=== PATIENT | female | born 1975 | race Caucasian/White ===

== ENCOUNTER 2016-12-23 05:48 | Emergency (ER) | payer MEDICARE, OTHER ==
[~2016-12-23] VITALS: Ht 157.5 cm; Wt 68.1 kg
[~2016-12-23 05:48] MED LIST: ALBU6.7H INH; ALBU8I INH; IBUP800T23 PO; LURA40 OR; MELO15TA2 PO
[2016-12-23 05:57] VITALS: BP 109/78; PULSE 116; RESP 20; TEMP 98.7; O2SAT 94
[2016-12-23] MEDS: RESP: ALBUTEROL 2.5 MG/IPRATROPIUM 0.5 MG NEB (SCH) INH (06:16)
[2016-12-23 06:25] VITALS: RESP 20; O2SAT 94
[2016-12-23 06:28] VITALS: PULSE 102; RESP 18; O2SAT 98
[2016-12-23] MEDS ORDERED: ALBU6.7H INH (06:39)
[2016-12-23] MEDS ORDERED: MEDR4PAK PO (06:39)
--- NOTE | 2016-12-23 06:45 | PD ---
HPI Chief Complaint: Respiratory Symptoms Time Seen by Provider: 06:09 Travel History International Travel<30 days: No Contact w/Intl Traveler<30days: No Traveled to known affect area: No History of Present Illness HPI 41 Year-old female with history of asthma presents to the emergency department for exacerbation of her asthma after opening up ovens at her place of work. Patient identifies that she is out of her rescue inhaler. Patient states that she is otherwise well controlled with her asthma. Patient has had no recent febrile illness or respiratory illness. Patient does not have exercise-induced asthma infection reports she ran 5 miles yesterday. Patient denies any environmental or seasonal allergens. Patient denies any chest pain or shortness of breath. Patient denies and is status post tubal ligation. PFSH Past Medical History Narrative Medical Asthma bipolar disorder CVA without residual; tubal ligation; no tobacco use; nursing notes reviewed Asthma: Yes Blood Disorders: No Bipolar Disorder: Yes Depression: Yes Cancer: No Cardiovascular Problems: No Cerebrovascular Accident: Yes (2006) Diminished Hearing: No Endocrine: No Gastrointestinal Disorders: No GERD: Yes Genitourinary: No Headaches: Yes Immune Disorder: No Musculoskeletal: No Neurologic: Yes Psychiatric: Yes (BI-POLAR) Reproductive: No Respiratory: Yes Immunizations Current: Yes Tetanus Vaccination: Unknown Influenza Vaccination: Yes ?: Not LMP: tubal ligation : 5 Para: 4 Miscarriage: 1 Tubal Ligation: Yes Past Surgical History Section: Yes Cholecystectomy: Yes Pacemaker: No Other Surgery: No Social History Alcohol Use: No Tobacco Use: No Substance Use: No Allergies-Medications (Allergen,Severity, Reaction): Coded Allergies: Erythromycin (Verified Allergy, Severe, RASH, 12/23/16) Lamictal (Verified Allergy, Severe, HIVES, 12/23/16) Seafood (Verified Allergy, Severe, 12/23/16) Reported Meds & Prescriptions Reported Meds & Active Scripts Active No Active Prescriptions or Reported Medications Review of Systems Except as stated in HPI: all other systems reviewed are Neg Physical Exam Narrative GENERAL: Well-developed well-nourished female in no acute distress mild respiratory distress no stridor or hoarseness SKIN: Warm and dry. HEAD: Normocephalic. EYES: No scleral icterus. No injection or drainage. ENT: Mucous members moist airway is patent. NECK: Supple, trachea midline. No JVD or lymphadenopathy. CARDIOVASCULAR: Regular rate and rhythm without murmurs, gallops, or rubs. RESPIRATORY: Breath sounds equal bilaterally mildly diminished breath sounds few expiratory wheezes. No accessory muscle use. GASTROINTESTINAL: Abdomen soft, non-tender, nondistended. MUSCULOSKELETAL: No cyanosis, or edema. BACK: Nontender without obvious deformity. No CVA tenderness. Data Data Last Documented VS Vital Signs Date Time Temp Pulse Resp B/P Pulse Ox O2 Delivery O2 Flow Rate FiO2 12/23/16 06:28 102 18 98 Room Air 12/23/16 05:57 98.7 109/78 Orders Iv Access Insert/Monitor (12/23/16 06:09) Ecg Monitoring (12/23/16 06:09) Oximetry (12/23/16 06:09) Oxygen Administration (12/23/16 06:09) Albuterol-Ipratropium Neb (Duoneb Neb) (12/23/16 06:15) MDM Medical Decision Making Medical Screen Exam Complete: Yes Emergency Medical Condition: Yes Medical Record Reviewed: Yes Differential Diagnosis Dyspnea, exacerbation asthma, bronchitis, pneumonia Narrative Course Patient administered DuoNeb updrafts 2 Patient does not want steroid in the emergency department Patient is clinically improved after updraft treatment; patient stable for outpatient management refill patient's rescue inhaler and prescription for Medrol Dosepak provided Diagnosis Primary Impression: Exacerbation of asthma Additional Impression: Medication refill Referrals: Primary Care Physician call for appointment Patient Instructions: General Instructions Departure Forms: Tests/Procedures, Work Release Special Instructions: no work x 1 day Additional Instructions: Increase fluid hydration Use inhaler as prescribed as needed Complete course of steroid as prescribed Follow-up with your primary care provider Take acetaminophen as needed for fever 100.4F or greater Return to the emergency department for fever shortness of breath pain or any concerns No work times one day Med/Other Pt SpecificInfo: Prescription(s) given Scripts Methylprednisolone Dosepak (Medrol Dosepak)4 Mg Dspk4 Mg PO DIRECTED #1 DSPK Ref 0 Per Pharmacist direction Prov:Tricia Vee MD 12/23/16 Albuterol 6.7 GM Inh (Proventil Hfa 6.7 GM Inh)90 Mcg/Act Aer2 Puff INH Q4-6H PRN (SHORTNESS OF BREATH) #1 INHALER Ref 0 Prov:Tricia Vee MD 12/23/16 Disposition: 01 DISCHARGE HOME Condition: Stable Tricia Vee MD December 23, 2016 06:45
== END 2016-12-23 06:53 | disposition home or self-care (01) ==
LOC: PHED 05:48
DX: J45.901 Unspecified asthma with (acute) exacerbation (principal); Z76.0 Encounter for issue of repeat prescription; F31.9 Bipolar disorder, unspecified; F32.9 Major depressive disorder, single episode, unspecified; W92.XXXA Exposure to excessive heat of man-made origin, initial encounter; Z86.73 Personal history of transient ischemic attack (TIA), and cerebral infarction without residual deficits; Y93.9 Activity, unspecified; Y92.090 Kitchen in other non-institutional residence as the place of occurrence of the external cause; Y99.0 Civilian activity done for income or pay
CPT/HCPCS: 94664; 99284

== ENCOUNTER 2017-05-31 09:35 | Emergency (ER) | payer MEDICARE, OTHER ==
[~2017-05-31] VITALS: Ht 157.5 cm; Wt 67.3 kg
[~2017-05-31 09:35] MED LIST changes: -ALBU8I INH; -IBUP800T23 PO; -LURA40 OR; +MEDR4PAK PO; -MELO15TA2 PO
[2017-05-31 09:40] VITALS: BP 116/53; PULSE 83; RESP 18; TEMP 98.6; O2SAT 98
--- NOTE | 2017-05-31 11:22 | PD ---
HPI Chief Complaint: Injury Time Seen by Provider: 11:11 Travel History International Travel<30 days: No Contact w/Intl Traveler<30days: No Traveled to known affect area: No History of Present Illness HPI 41-year-old female presents for evaluation of left knee pain. She reports that yesterday she was having a water balloon fight and she slipped on the wet floor in the kitchen. She twisted her left knee in the process. She reports that yesterday evening she had some swelling in her left knee and she has been icing and elevating her left knee. She has had pain today in her left knee and her work sent her here for medical clearance. She reports that it is an aching pain that is worse with movement and walking. Denies any numbness or tingling or weakness. She has no other complaints at this time. PFSH Past Medical History Asthma: Yes Blood Disorders: No Bipolar Disorder: Yes Depression: Yes Cancer: No Cardiovascular Problems: No Cerebrovascular Accident: Yes (2006) Diminished Hearing: No Endocrine: No Gastrointestinal Disorders: No GERD: Yes Genitourinary: No Headaches: Yes Immune Disorder: No Musculoskeletal: No Neurologic: Yes Psychiatric: Yes (BI-POLAR) Reproductive: No Respiratory: Yes Immunizations Current: Yes : 5 Para: 4 Miscarriage: 1 Tubal Ligation: Yes Past Surgical History Section: Yes Cholecystectomy: Yes Pacemaker: No Other Surgery: No Social History Alcohol Use: No Tobacco Use: No Substance Use: No Allergies-Medications (Allergen,Severity, Reaction): Coded Allergies: Fish Containing Products (Unverified Allergy, Severe, 03/13/17) erythromycin base (Unverified Allergy, Severe, RASH, 03/13/17) lamotrigine (Unverified Allergy, Severe, HIVES, 03/13/17) Reported Meds & Prescriptions Reported Meds & Active Scripts Active Medrol Dosepak (Methylprednisolone) 4 Mg Dspk 4 Mg PO DIRECTED Per Pharmacist direction Proventil Hfa 6.7 GM Inh (Albuterol Sulfate) 90 Mcg/Act Aer 2 Puff INH Q4-6H PRN Review of Systems Musculoskeletal: Positive: Pain, No: Limited ROM Skin: Positive Other (denies open wounds) Physical Exam Narrative GENERAL: Well-developed well-nourished female in no acute distress SKIN: Warm and dry. CARDIOVASCULAR: Regular rate and rhythm. No murmur appreciated. RESPIRATORY: No accessory muscle use. Clear to auscultation. Breath sounds equal bilaterally. MUSCULOSKELETAL: No obvious deformities. No joint effusion is currently present. There is mild tenderness to palpation to the medial lateral left knee joint. The patient maintains full fluid flexion and extension of the knee. There is no obvious laxity on valgus/varus/anterior/posterior stress. NEUROLOGICAL: Awake and alert. No obvious cranial nerve deficits. Motor grossly within normal limits. Normal speech. Data Data Last Documented VS Vital Signs Date Time Temp Pulse Resp B/P (MAP) Pulse Ox O2 Delivery O2 Flow Rate FiO2 05/31/17 09:40 98.6 83 18 116/53 (74) 98 Room Air Orders Orders Mikey Bandage (05/31/17 11:12) Ed Discharge Order (05/31/17 11:12) [facility] Medical Decision Making Medical Screen Exam Complete: Yes Emergency Medical Condition: Yes Medical Record Reviewed: Yes Differential Diagnosis Knee strain, ligamentous disruption, meniscal disruption, tibial plateau fracture, patellar tendon rupture Narrative Course Physical examination reveals no evidence of bony deformity. The patient appears to have sustained a sprain to her left knee. She will be given an Mikey wrap for support. She understands the importance of follow-up as an outpatient as if symptoms persist outpatient MRI imaging would be warranted. She is stable for discharge. Diagnosis Primary Impression: Left knee sprain Qualified Codes: S83.92XA - Sprain of unspecified site of left knee, initial encounter Departure Forms: Tests/Procedures, Work Release Enter return to work date: Jun 04, 2017 Additional Instructions: Ice the affected area several times a day 20 minutes at a time. Rest. Mikey wrap as needed. Elevation. Tylenol or Motrin for pain. Follow up in 2 weeks with primary care physician for recheck. Return for any emergent medical conditions. Med/Other Pt SpecificInfo: No Change to Meds Disposition: 01 DISCHARGE HOME Condition: Stable Armando Tan May 31, 2017 11:22
== END 2017-05-31 11:36 | disposition home or self-care (01) ==
LOC: PHEFT 09:35
DX: S83.92XA Sprain of unspecified site of left knee, initial encounter (principal); W01.0XXA Fall on same level from slipping, tripping and stumbling without subsequent striking against object, initial encounter; Y93.89 Activity, other specified; Y92.000 Kitchen of unspecified non-institutional (private) residence as the place of occurrence of the external cause
CPT/HCPCS: 99282

== ENCOUNTER 2018-06-25 06:25 | Inpatient (IN) ==
[2018-06-25] MEDS: Sod Chloride 0.9% Inj 1,000 ML IV.CONT SCH ×3 (07:20→19:40)
--- NOTE | 2018-06-25 07:22 | ED ---
HPI General Chief Complaint: Chest Pain Stated Complaint: Medical Time Seen by Provider: 06/25/18 07:05 Source: patient Mode of arrival: ambulatory Limitations: physical limitation and other History of Present Illness HPI Narrative: The patient is a 42-year-old female who presents to the emergency department for dysarthria and left-sided weakness. The patient's symptoms started on with chest pain that was left-sided, substernal, nonradiating, and intermittent. The patient was awake this morning when she suddenly developed symptoms at 6:30 AM including dysarthria, left arm weakness , left leg weakness, and left-sided numbness. The patient does have a history of previous CVA in 2006 but is not currently on any anticoagulants secondary to von Willebrand's disease. The patient's symptoms were acute onset at 6:30 AM. The patient is not currently taking any anticoagulants. Symptoms are severe and progressive. There are no current alleviating factors. Onset (ago): minute(s) Last Observed Normal: 06:30 Location: Reports speech, left arm and left leg History of same: No Severity: severe Quality: Reports weak and numb Relieving factors: none Exacerbating factors: none Context: Reports sudden onset On Anticoagulants: No Associated symptoms: Reports chest pain Treatments Prior to Arrival: Reports none Related Data Previous Rx's Medication Instructions Recorded albuterol sulfate [Ventolin HFA] 2 inh INHALATION Q4-6H PRN #8 g 05/21/18 Allergies Allergy/AdvReac Type Severity Reaction Status Date / Time erythromycin base Allergy Severe RASH Verified 06/25/18 07:09 lamotrigine Allergy Severe HIVES Verified 06/25/18 07:09 Review of Systems ROS: all other systems reviewed are negative [facility] Social History Social History Substance History: No History of Abuse Second Hand Smoke Exposure: No Smoking Status: Never smoker How Often Do You Have a Drink Containing Alcohol: Monthly or less Recent Travel in [facility] [place] within the Last 8 Weeks: No Recent Out of Country Travel within the Last 8 Weeks: No Immunization History Tetanus Immunization: Unsure Exam Narrative Exam Narrative: GENERAL: Awake, alert, tearful 42-year-old female who appears her stated age and appears slightly anxious. SKIN: Focused skin assessment warm/dry. HEAD: Atraumatic. Normocephalic. EYES: Pupils equal and round. 3 mm bilateral and reactive. EOMs are intact. Visual truong appear symmetric. Patient is able see fingers at a distance of 2 feet without difficulty. ENT: No nasal bleeding or discharge. Mucous membranes pink and moist. NECK: Trachea midline. No JVD. CARDIOVASCULAR: Regular rate and rhythm. No murmur appreciated. Heart rate in the 90s. RESPIRATORY: No accessory muscle use. Clear to auscultation. Breath sounds equal bilaterally. GASTROINTESTINAL: Abdomen soft, non-tender, nondistended. Hepatic and splenic margins not palpable. MUSCULOSKELETAL: No obvious deformities. No clubbing. No cyanosis. No edema. NEUROLOGICAL: Awake and alert. EOMs are intact. Smile is symmetric. Tongue is midline. Dysarthria noted. Drift to the left upper extremity but does not fall to the bed. Drift of the left leg to the bed within 5 seconds. Decreased sensation to soft touch in the left arm and left leg. Sensation is symmetric to the face. Heel to johns was normal. Finger to nose was diminished on the left, uncertain if this is secondary to the acute weakness. Oriented to person and place. Able to recognize a hand. PSYCHIATRIC: Appears anxious. Course Initial Documented Vital Signs Temperature 98.1 F 06/25/18 06:39 Pulse Rate 85 06/25/18 06:39 Respiratory Rate 18 06/25/18 06:39 Blood Pressure 121/55 L 06/25/18 06:39 Pulse Oximetry 99 06/25/18 06:39 Last Documented Vital Signs Temperature 98.1 F 06/25/18 06:39 Pulse Rate 72 06/25/18 07:30 Respiratory Rate 18 06/25/18 07:30 Blood Pressure 118/74 06/25/18 07:30 Pulse Oximetry 99 06/25/18 07:37 NIH Stroke Scale NIH Stroke Scale Level of Consciousness: 0-Alert Responds to Commands: 0-Both tasks correct Visual Truong: 0-No visual field defect Facial Movement: 0-Normal Motor Functions Arm LEFT: 1-Drift before 10 seconds Motor Functions Arm RIGHT: 0-No drift Motor Functions Leg LEFT: 2-Falls before 5 seconds Motor Functions Leg RIGHT: 0-No drift Limb Ataxia: 1-Ataxia in one limb Sensory Loss: 1-Mild sensory loss Best Language: 0-Normal Articulation: 2-Severe dysarthria Extinction or Inattention Sensory: 0-Absent Total: 7 Medical Decision Making MDM Narrative Medical decision making narrative: IV was established, labs are drawn and sent, the patient was placed on cardiac telemetry monitoring and continuous pulse oximetry monitoring. The patient's NIHSS was 7, a stroke alert was called as the patient's symptoms had an onset of 6:30 AM. I discussed the patient with the on-call neurologist, Dr. Paredes, 725. We had a discussion regarding TPA and von Willebrand's disease, he recommends consultation with hematology/ oncology. Therefore, a stat call was placed to hematology and oncology. The patient went immediately to CT for CT of the brain, CTA of the head neck, and CT perfusion. I discussed the patient with the radiologist, Dr. Chilango Arguello at 7: [address] of the brain is negative. There is no acute intracranial hemorrhage. I discussed the patient with hematology/oncology who recommends no TPA until further evaluation is performed. 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 The patient was reevaluated at 744 we had a discussion about TPA, her speech appears to have improved, is less dysarthric. The patient also had improved use of the left upper extremity and left leg, was able to scoot up in bed. Therefore, no TPA will be administered. I will hold anticoagulation until the patient is evaluated by hematology. The patient will be admitted for workup of acute CVA. I discussed the patient once again with hematology/oncology at 7:50 AM. He recommends that his colleague, Dr. Stanley, be consulted in regards to the patient's von Willebrand with CVA for further hematology evaluation. I discussed the patient with the residents, Dr. Brito, who agrees with admission to Dr. Costello. Medical Screen Exam Complete: Yes Emergency Medical Condition: Yes Differential Diagnosis Differential Diagnosis: Differential diagnosis includes CVA, TIA, intracranial hemorrhage, migraine variant, seizure, aortic dissection, carotid dissection, coagulopathy, MS. Lab Data Result diagrams: 06/25/18 07:18 POC Results POC Urine Results Negative Lab Results 06/25/18 06/25/18 06/25/18 Range/Units 07:16 07:18 07:18 WBC 4.9 (4.0-11.0) th/mm3 RBC 4.18 (4.00-5.30) mil/mm3 Hgb 13.0 (11.6-15.3) gm/dL POC Hgb (Calc) 12.9 (11.6-15.3) g/dL Hct 39.3 (35.0-46.0) % POC Hct 38.0 (35-46.0) % MCV 94.0 (80.0-100.0) fL MCH 31.2 (27.0-34.0) pg MCHC 33.2 (32.0-36.0) % RDW 15.1 (11.6-17.2) % Plt Count 178 (150-450) th/mm3 MPV 10.0 (7.0-11.0) fL Neut % (Auto) 62.4 (16.0-70.0) % Lymph % (Auto) 23.2 (9.0-44.0) % Mclennan % (Auto) 10.4 H (0.0-8.0) % Eos % (Auto) 2.9 (0.0-4.0) % Baso % (Auto) 1.1 (0.0-2.0) % Neut # (Auto) 3.1 (1.8-7.7) th/mm3 Lymph # (Auto) 1.1 (1.0-4.8) th/mm3 Mclennan # (Auto) 0.5 (0.0-0.9) th/mm3 Eos # (Auto) 0.1 (0.0-0.4) th/mm3 Baso # (Auto) 0.1 (0.0-0.2) th/mm3 WBC Differential . Differential Comment Auto diff final PT (9.8-11.6) sec INR Ratio APTT (23.4-31.7) sec Fibrinogen (227-377) mg/dL POC Sodium 140 (137-144) mmol/L POC Potassium 4.0 (3.6-5.0) mmol/L POC Chloride 101 L (102-111) mmol/L POC BUN 15 (5-21) mg/dL POC Creatinine 0.6 (0.6-1.3) mg/dL POC Glucose 83 82 (68-110) mg/dl Total Creatine Kinase (26-192) U/L Troponin I (0.02-0.05) ng/mL Beta HCG, Quant (0-5) mIU/mL Urine Color (Yellw/Straw) Urine Clarity (Clear) Urine pH (5.0-8.5) Ur Specific [place] (1.002-1.035) Urine Protein (Neg-Trace) mg/dL Urine Glucose (UA) (Negative) mg/dL Urine Ketones (Negative) mg/dL Urine Occult Blood (Negative) Urine Nitrate (Negative) Urine Bilirubin (Negative) Urine Urobilinogen (Less than 2) mg/dL Ur Leukocyte Esterase (Negative) Urine RBC (0-3) /hpf Ur Squamous Epith Cells (0-5) /hpf Micro UA Comment Ur Microscopic Review Urine Culture Comments 06/25/18 06/25/18 06/25/18 Range/Units 07:18 07:18 07:56 WBC (4.0-11.0) th/mm3 RBC (4.00-5.30) mil/mm3 Hgb (11.6-15.3) gm/dL POC Hgb (Calc) (11.6-15.3) g/dL Hct (35.0-46.0) % POC Hct (35-46.0) % MCV (80.0-100.0) fL MCH (27.0-34.0) pg MCHC (32.0-36.0) % RDW (11.6-17.2) % Plt Count (150-450) th/mm3 MPV (7.0-11.0) fL Neut % (Auto) (16.0-70.0) % Lymph % (Auto) (9.0-44.0) % Mclennan % (Auto) (0.0-8.0) % Eos % (Auto) (0.0-4.0) % Baso % (Auto) (0.0-2.0) % Neut # (Auto) (1.8-7.7) th/mm3 Lymph # (Auto) (1.0-4.8) th/mm3 Mclennan # (Auto) (0.0-0.9) th/mm3 Eos # (Auto) (0.0-0.4) th/mm3 Baso # (Auto) (0.0-0.2) th/mm3 WBC Differential Differential Comment PT 10.5 (9.8-11.6) sec INR 1.0 Ratio APTT 27.1 (23.4-31.7) sec Fibrinogen 251 (227-377) mg/dL POC Sodium (137-144) mmol/L POC Potassium (3.6-5.0) mmol/L POC Chloride (102-111) mmol/L POC BUN (5-21) mg/dL POC Creatinine (0.6-1.3) mg/dL POC Glucose (68-110) mg/dl Total Creatine Kinase 52 (26-192) U/L Troponin I Less than 0.02 L (0.02-0.05) ng/mL Beta HCG, Quant Less than 1 (0-5) mIU/mL Urine Color Straw (Yellw/Straw) Urine Clarity Clear (Clear) Urine pH 6.0 (5.0-8.5) Ur Specific [place] 1.025 (1.002-1.035) Urine Protein Negative (Neg-Trace) mg/dL Urine Glucose (UA) Negative (Negative) mg/dL Urine Ketones Negative (Negative) mg/dL Urine Occult Blood Negative (Negative) Urine Nitrate Negative (Negative) Urine Bilirubin Negative (Negative) Urine Urobilinogen Less than 2 (Less than 2) mg/dL Ur Leukocyte Esterase Negative (Negative) Urine RBC Less than 1 (0-3) /hpf Ur Squamous Epith Cells 7 (0-5) /hpf Micro UA Comment Culture not ind Ur Microscopic Review Not Reportable Urine Culture Comments Culture not ind Imaging Data Radiologist's impression: Chest X-Ray 06/25/18 07:15 CONCLUSION: Perihilar infiltrate on the left. This is new compared to prior 2010. Underlying pneumonia is not excluded. Head CT 06/25/18 07:15 CONCLUSION: 1. No acute intracranial abnormality. Report was called by [Dr. Chilango Arguello to Dr. Thomas at 7:29 AM.] Head CTA 06/25/18 07:15 CONCLUSION: 1. No large or central vessel occlusion identified. CT cerebral perfusion is pending. Report was called by [ Dr. Ankush Arguello to Dr. Paredes at 7:44 AM] Neck CTA 06/25/18 07:15 CONCLUSION: 1. No hemodynamically significant carotid artery stenosis identified. 2. Diminutive right vertebral. The left vertebral is dominant blood supply to the basilar. CT CAD 06/25/18 07:16 CONCLUSION: Physiological brain perfusion parameters with RAPID analysis as above. The decision for consideration of therapy is multi factorial and multi disciplinary relying on subjective and objective clinical data. This data is not construed or intended to be the sole determinant of treatment eligibility. ECG Data EKG Prior to Arrival: No Attestation: I personally reviewed and interpreted this ECG as follows: Interpretation: EKG reveals normal sinus rhythm with a rate of 65. Inverted T wave in lead III. No discernible rhythm in lead II. Discharge Plan Discharge Disposition Patient Disposition: 30 Still Patient Discharge Condition Condition: Stable Discharge Details Diagnosis: Acute cerebrovascular accident, Dysarthria Physicians Team ED Provider: Vin Thomas Primary Care Provider: UNKNOWN, Other Providers: Tonio Paredes Rxs /Orders / Referrals /Forms Prescriptions: No Action albuterol sulfate [Ventolin HFA] 90 mcg/actuation HFA aerosol inhaler 2 inh INHALATION Q4-6H PRN (Reason: shortness of breath or wheezing) Qty: 8 RF: 0 Discharge Instructions Patient Printed Instructions: Chest Pain (ED) Discharge Interventions Interventions: Vital Signs Last Done: 06/25/18 07:30 Status ED Status: Admitted Patient
--- NOTE | 2018-06-25 07:38 | CT ---
EXAM DATE: 06/25/2018 7:30 AM EST AGE/SEX: 42 years / Female INDICATIONS: Stroke alert, left side tingling. Slurred speech. CLINICAL DATA: This is the patient's initial encounter. Patient reports that signs and symptoms have been present for 1 day and indicates a pain score of Nonresponsive. MEDICAL/SURGICAL HISTORY: Non-responsive. Non-responsive. RADIATION DOSE: 30.48 CTDI (mGy) [place] [facility] [place]/10/[place]. . TECHNIQUE: CT of the head without contrast. Using automated exposure control and adjustment of the mA and/or kV according to patient size, radiation dose was kept as low as reasonably achievable to ob tain optimal diagnostic quality images. DICOM format image data is available electronically for revi ew and comparison. FINDINGS: Cerebrum: The ventricles are normal for age. No evidence of midline shift, mass lesion, hemorrhage or acute infarction. No extraaxial fluid collections are seen. Posterior Fossa: The cerebellum and brainstem are intact. The 4th ventricle is midline. The cerebe llopontine angle is unremarkable. Extracranial: The visualized portion of the orbits is intact. Skull: The calvaria is intact. No evidence of skull fracture. CONCLUSION: 1. No acute intracranial abnormality. Report was called by [Dr. Chilango Arguello to Dr. Thomas at 7:29 AM.] Electronically signed by: Lawson Arguello MD 06/25/2018 7:37 AM EST
[2018-06-25 07:48] LABS: Baso # (Auto) 0.1 th/mm3 (0.0-0.2); Baso % (Auto) 1.1 % (0.0-2.0); Eos # (Auto) 0.1 th/mm3 (0.0-0.4); Eos % (Auto) 2.9 % (0.0-4.0); Hematocrit 39.3 % (35.0-46.0); Lymph # (Auto) 1.1 th/mm3 (1.0-4.8); Lymph % (Auto) 23.2 % (9.0-44.0); Mean Corpuscular HGB Conc 33.2 % (32.0-36.0); Mean Corpuscular Hemoglobin 31.2 pg (27.0-34.0); Mono # (Auto) 0.5 th/mm3 (0.0-0.9); Mono % (Auto) 10.4 % (0.0-8.0); Neut # (Auto) 3.1 th/mm3 (1.8-7.7); Neut % (Auto) 62.4 % (16.0-70.0); Platelet Count 178 th/mm3 (150-450); Red Blood Count 4.18 mil/mm3 (4.00-5.30); Red Cell Distribution Width 15.1 % (11.6-17.2); White Blood Count 4.9 th/mm3 (4.0-11.0)
[2018-06-25 07:50] LABS: Activated Partial Thrombo Time 27.1 sec (23.4-31.7); Prothrombin Time 10.5 sec (9.8-11.6)
--- NOTE | 2018-06-25 07:51 | CT ---
EXAM DATE: 06/25/2018 7:45 AM EST AGE/SEX: 42 years / Female INDICATIONS: Stroke alert, left side tingling. Slurred speech. CLINICAL DATA: This is the patient's initial encounter. Patient reports that signs and symptoms have been present for 1 day and indicates a pain score of Nonresponsive. MEDICAL/SURGICAL HISTORY: Non-responsive. Non-responsive. RADIATION DOSE: 24.84 CTDI (mGy) ; Combined studies COMPARISON: [facility] – [place], CT HEAD W/O CONTRAST, 06/25/2018. . TECHNIQUE: Volumetric scanning was performed using a multi-row detector CT scanner during bolus infu niocle of 60 ml Visipaque 320 (iodixanol) nonionic water-soluble contrast as a cumulative dose for mul tiple exams. The data was post processed with a variety of visualization algorithms including full volume maximum intensity projection, multi-planar sliding thin slab reformation, curved planar reform ation, and surface rendering techniques. Using automated exposure control and adjustment of the mA a nd/or kV according to patient size, radiation dose was kept as low as reasonably achievable to obtain optimal diagnostic quality images. DICOM format image data is available electronically for review a nd comparison. FINDINGS: Both distal internal carotid arteries are widely patent. The anterior and middle cerebral circulation is within normal limits. No large or central vessel occlusion is seen. Posteriorly, the left vertebral is dominant blood supply to the basilar. It appears widely patent. Th e right vertebral is atretic and terminates in a plica. The posterior cerebral circulation appears wi breanna patent. CONCLUSION: 1. No large or central vessel occlusion identified. CT cerebral perfusion is pending. Report was called by [ Dr. Ankush Arguello to Dr. Paredes at 7:44 AM] Electronically signed by: Lawson Arguello MD 06/25/2018 7:50 AM EST
--- NOTE | 2018-06-25 07:57 | CT ---
EXAM DATE: 06/25/2018 7:52 AM EST AGE/SEX: 42 years / Female INDICATIONS: Stroke alert, left side tingling. Slurred speech. CLINICAL DATA: This is the patient's initial encounter. Patient reports that signs and symptoms have been present for 1 day and indicates a pain score of Nonresponsive. MEDICAL/SURGICAL HISTORY: Non-responsive. Non-responsive. RADIATION DOSE: 24.84 CTDI (mGy) ; Combined studies COMPARISON: No prior exams available for comparison. TECHNIQUE: Volumetric scanning was performed using a multirow detector CT scanner during bolus infus ion of 60 ml Omnipaque 350 (iohexol) nonionic water-soluble contrast as a cumulative dose for multip le exams. The data was postprocessed with a variety of visualization algorithms including full-volu me maximum intensity projection, multiplanar sliding thin-slab reformation, curved-planar reformation , and surface-rendering techniques. Using automated exposure control and adjustment of the mA and/or kV according to patient size, radiation dose was kept as low as reasonably achievable to obtain opti mal diagnostic quality images. DICOM format image data is available electronically for review and co mparison. Percent stenosis is calculated using the diameter of the stenotic region over the diameter of the nor mal distal internal carotid artery. FINDINGS: Aortic arch: There is bovine branching of the great vessels from the arch. The origins of the great v essels are widely patent. Right carotid: The right common carotid, internal carotid and external carotid are widely patent. Left carotid: The left common carotid, internal carotid and external carotid are widely patent. Vertebral circulation: The right vertebral is diminutive in caliber. It terminates in a PICA. The lef t vertebral is dominant blood supply to the basilar. It is widely patent throughout its course. CT source data: The portions of pulmonary parenchyma visualized are clear. CONCLUSION: 1. No hemodynamically significant carotid artery stenosis identified. 2. Diminutive right vertebral. The left vertebral is dominant blood supply to the basilar. Electronically signed by: Lawson Arguello MD 06/25/2018 7:55 AM EST
--- NOTE | 2018-06-25 08:00 | CT ---
EXAM DATE: 06/25/2018 7:54 AM EST AGE/SEX: 42 years / Female INDICATIONS: Stroke alert, left side tingling. Slurred speech. CLINICAL DATA: This is the patient's initial encounter. Patient reports that signs and symptoms have been present for 1 day and indicates a pain score of Nonresponsive. MEDICAL/SURGICAL HISTORY: Non-responsive. Non-responsive. RADIATION DOSE: 314.22 CTDI (mGy) COMPARISON: [facility] – [place], CT HEAD W/O CONTRAST, 06/25/2018. . TECHNIQUE: CT of the head after intravenous administration of 40 ml Visipaque 320 (iodixanol) nonio elizabeth water-soluble contrast as a single exam dose. Using automated exposure control and adjustment of the mA and/or kV according to patient size, radiation dose was kept as low as reasonably achievable to obtain optimal diagnostic quality images. DICOM format image data is available electronically for review and comparison. FINDINGS: 1. CBF (<30%) Volume (ml): 0 2. Perfusion (Tmax>6.0s) Volume (ml): 0 3. Mismatch Volume (ml) (Tmax>6.0 - CBF): 0 CONCLUSION: Physiological brain perfusion parameters with RAPID analysis as above. The decision for consideration of therapy is multi factorial and multi disciplinary relying on subjec tive and objective clinical data. This data is not construed or intended to be the sole determinant of treatment eligibility. Electronically signed by: Lawson Arguello MD 06/25/2018 7:59 AM EST
--- NOTE | 2018-06-25 08:02 | XR ---
EXAM DATE: 06/25/2018 7:53 AM EST AGE/SEX: 42 years / Female INDICATIONS: Stroke alert, left side numbness and weakness. CLINICAL DATA: This is the patient's initial encounter. Patient reports that signs and symptoms have been present for 1 day and indicates a pain score of 1/10. MEDICAL/SURGICAL HISTORY: Stroke. None. COMPARISON: [facility] [place] SING[place], 01/18/2011. . FINDINGS: Single AP chest demonstrates an patchy infiltrate throughout the left lung. This is new compared to p revious of 01/18/2011. The right lung is clear. The heart is enlarged. The bony structures are intact. CONCLUSION: Perihilar infiltrate on the left. This is new compared to prior 2010. Underlying pneumonia is not exc luded. Electronically signed by: Lawson Arguello MD 06/25/2018 8:01 AM EST
[2018-06-25 08:07] LABS: Creatine Kinase 52 U/L (26-192)
[2018-06-25 08:33] LABS: Bilirubin,Urine Negative (Negative); Clarity,Urine Clear (Clear); Color,Urine Straw (Yellw/Straw); Glucose,Urine (UA) Negative (Negative); Leukocyte Esterase,Urine Negative (Negative); Nitrite,Urine Negative (Negative); Specific Gravity,Urine 1.025 (1.002-1.035); Squamous Epithelial Cell,Urine 7 /hpf (0-5)
[2018-06-25 08:37] LABS: Amphetamine Screen,Urine Neg (Neg); Barbiturate Screen,Urine Neg (Neg); Cocaine Screen,Urine Neg (Neg)
[2018-06-25 08:38] LABS: Opiate Screen,Urine Neg (Neg)
[2018-06-25 08:40] LABS: Cannabinoid Screen,Urine Neg (Neg)
[2018-06-25] MEDS ORDERED: Acetaminophen 325 MG Tablet PO PRN (09:26)
--- NOTE | 2018-06-25 11:13 | P.HPFP ---
History of Present Illness Primary Care Physician: UNKNOWN <Chaparro Costello - 06/27/18 16:29> UNKNOWN <EvanBlancaeufemia Hurtado 06/25/18 11:13> Chief Complaint: weakness <SabasmamadouJez Genesis 06/25/18 17:41> History of Present Illness: He is a 42-year-old female with a past medical history of von Willebrand's disease (type II) and history of prior stroke in 2006 who presented to the ED with onset of dysarthria and left-sided weakness this morning at about 615. She is aided in her history giving by her fianc due to her difficulty with speaking. She has had some mild chest pain since . It is left-sided and substernal, and she describes it as a tightening, she did not have any weakness or numbness at that time. She does not have any chest pain at this time. This morning she woke at about 615 and noticed that she had difficulty speaking and weakness in the left side. She reports that she was able to ambulate at that time. She went to work where her project product manager noticed her symptoms and told her to go to the ED. she reports that her left side is slightly numb, however not completely and that she has tingling. She also reports that her speech is intermittently difficult. She denies lightheadedness, dizziness, headache, nausea, vomiting, chest pain at this time, palpitations, shortness of breath, cough, congestion, abdominal pain, change in bowel habits, dysuria. Past medical history: Type II von Willebrand disease Diet-controlled diabetes Asthma not on any daily medications, uses Ventolin as needed Bipolar disorder, not currently on any medications <EvanBlancaeufemia Hurtado 06/25/18 18:28> - Diagnosis (1) Acute cerebrovascular accident (2) Dysarthria <PeymanChaparro ornelas 06/27/18 16:29> (1) Acute cerebrovascular accident (2) Dysarthria <Jez Gordon 06/25/18 18:28> Inpatient Certification: I certify that the inpatient services were ordered in accordance with Medicare regulations governing the order. This includes certification that hospital inpatient services are reasonable and necessary and in the case of services not specified as inpatient-only under 42 CFR 419.22(n), that they are appropriately provided as inpatient services in accordance to with the 2-midnight benchmark under 43 CFR 412.3(e) <Chaparro Costello 06/27/18 16:29> I certify that the inpatient services were ordered in accordance with Medicare regulations governing the order. This includes certification that hospital inpatient services are reasonable and necessary and in the case of services not specified as inpatient-only under 42 CFR 419.22(n), that they are appropriately provided as inpatient services in accordance to with the 2-midnight benchmark under 43 CFR 412.3(e) <Jez Gordon 06/25/18 11:13> Estimated Total Length of Stay (Days): 2 <Jez Gordon 06/25/18 11: 13> Plans for Post Hospital Care: Home <Jez Gordon 06/25/18 11:13> Review of Systems All other systems reviewed negative except as stated in HPI <Jez Gordon 06/25/18 18:28> PMFSH - History History Provided By: Patient, Significant Other <Jez Gordon 18:28> - Medical / Surgical Hx Neg / Unobtainable Surgical History: No Previous Surgery <Jez Gordon 06/25/18 18:28> - Medical History Medical History: Medical History (Last Reviewed 06/25/18 @ 14:37 by Ada Concepcion) Stroke Asthma Diabetes Von Willebrand disease <Chaparro Costello 06/27/18 16:29> Medical History (Last Reviewed 06/25/18 @ 14:37 by Ada Concepcion) Stroke Asthma Diabetes Von Willebrand disease <Jez Gordon 06/25/18 17:41> - Tobacco History Second Hand Smoke Exposure: No <Jez Gordon 06/25/18 11:13> Smoking Status: Never smoker <Jez Gordon 06/25/18 11:13> - Alcohol History How Often Do You Have a Drink Containing Alcohol: Monthly or less <Jez Gordon 06/25/18 11:13> - Substance Use History Substance History: No History of Abuse <Jez Gordon - 06/25/18 11:13> - Travel History Recent Travel in the [place] Within the Last 8 Weeks: No <SabasceceBlanca mercereufemia Hurtado - 06/25/18 11:13> Recent Travel Out of the Country Within the Last 8 Weeks: No <Jez Gordon Genesis - 06/25/18 11:13> - Immunization History Tetanus Immunization: Unsure <SabasmamadouBlancaeufemia Hurtado - 06/25/18 11:13> Medications and Allergies Allergies Allergy/AdvReac Type Severity Reaction Status Date / Time erythromycin base Allergy Severe RASH Verified 06/25/18 07:09 lamotrigine Allergy Severe HIVES Verified 06/25/18 07:09 <Chaparro Costello - 06/27/18 16:29> Active Medications: Active Medications Acetaminophen (Tylenol) 650 mg PO Q4H PRN PRN Reason: Temp > 100.4 Last Admin: 06/25/18 12:55 Dose: 650 mg Aspirin (Aspirin) 325 mg PO DAILY [facility] Last Admin: 06/26/18 10:37 Dose: 325 mg Atorvastatin Calcium (Lipitor) 40 mg PO HS [facility] Last Admin: 06/25/18 21:55 Dose: 40 mg Dextrose (D50w Vial) 50 ml IV.PUSH UNSCH PRN PRN Reason: PER HYPOGLYCEMIA PROTOCOL Enalaprilat (Vasotec Inj) 1.25 mg IV.PUSH Q4H PRN PRN Reason: For SBP > 220 or DBP > 120 Enoxaparin Sodium (Lovenox Inj) 40 mg SQ Q24H [facility] Last Admin: 06/25/18 14:39 Dose: 40 mg Glucagon (Glucagon Inj) 1 mg OTHER UNSCH PRN PRN Reason: for Hypoglycemia Protocol Sodium Chloride (Ns Inj) 1,000 mls @ 100 mls/hr IV.CONT .Q10H [facility] Last Admin: 06/26/18 05:42 Dose: 70 mls/hr Sodium Chloride (Ns Inj) 1,000 mls @ 100 mls/hr IV.CONT .Q10H [facility] Last Admin: 06/26/18 10:38 Dose: 100 mls/hr Insulin Aspart (Novolog Insulin Correctional Sugar Inj) 0 unit SQ ACHS [facility]; Protocol Last Admin: 06/26/18 10:33 Dose: Not Given Ondansetron HCl (Zofran Inj) 4 mg IV.PUSH Q6H PRN PRN Reason: NAUSEA OR VOMITING Sodium Chloride (Ns Flush) 2 ml IV.FLUSH BID [facility] Last Admin: 06/26/18 10:37 Dose: 2 ml Sodium Chloride (Ns Flush) 2 ml IV.FLUSH PRN PRN PRN Reason: FLUSH AFTER USING IV ACCESS <Chaparro Costello - 06/27/18 16:29> Active Medications Acetaminophen (Tylenol) 650 mg PO Q4H PRN PRN Reason: Temp > 100.4 Sodium Chloride (Ns Inj) 1,000 mls @ 100 mls/hr IV.CONT .Q10H [facility] Last Admin: 06/25/18 07:20 Dose: 70 mls/hr Ondansetron HCl (Zofran Inj) 4 mg IV.PUSH Q6H PRN PRN Reason: NAUSEA OR VOMITING <Jez Gordon - 06/25/18 11:13> Exam Vital signs: Vital Signs 06/26/18 17:30 Pulse Oximetry 99 <Chaparro Costello - 06/27/18 16:29> Vital Signs 06/25/18 06:39 06/25/18 07:11 06/25/18 07:30 Temperature 98.1 F Pulse Rate 85 100 H 72 Respiratory Rate 18 27 H 18 Blood Pressure 121/55 L 132/92 H 118/74 Pulse Oximetry 99 100 99 06/25/18 07:37 Temperature Pulse Rate Respiratory Rate Blood Pressure Pulse Oximetry 99 Intake & Output 06/24/18 06/25/18 06/25/18 18:59 06:59 18:59 Weight 62.142 kg <Jez Gordon - 06/25/18 11:13> Narrative: General: Well-developed, alert, and in no acute distress. Appears stated age HEENT: Atraumatic, PERRL, non-icteric sclera and no conjunctival injection, moist mucous membranes Neck: Supple, non-tender without masses or lymphadenopathy, trachea midline Cardiac: Regular rate and rhythm without murmurs Pulmonary: Non-labored breathing. Lungs clear to auscultation bilaterally with good air movement Abdomen: Normal bowel sounds, soft and non-tender without rebound or guarding Extremities: No edema, 2+ pedal pulses, capillary refill less than 2 seconds Neurologic: Extraocular motions grossly intact. She reports double vision on horizontal tracking, however not vertical tracking. This is only present with both eyes open. There is blurred vision on the left and mild decrease in peripheral vision in all directions of the left eye. Cranial nerves I through XII otherwise intact. She has 2/5 strength in her upper and lower left extremities. She has intact, however diminished sensation diffusely on the left side of the body from neck down. Heel to johns with the right foot and rapid alternating movement with the right hand are intact, unable to assess on the left due to her weakness. <Jez Gordon - 06/25/18 18:28> Results - Labs Result diagrams: 06/26/18 07:10 06/26/18 07:10 <Chaparro Costello - 06/27/18 16:29> Abnormal lab results 06/25/18 06/25/18 06/25/18 Range/Units 07:18 07:18 07:18 Ralls % (Auto) 10.4 H (0.0-8.0) % POC Chloride 101 L (102-111) mmol/L Troponin I Less than 0.02 L (0.02-0.05) ng/mL Short CBC 06/25/18 Range/Units 07:18 WBC 4.9 (4.0-11.0) th/mm3 Hgb 13.0 (11.6-15.3) gm/dL Hct 39.3 (35.0-46.0) % Plt Count 178 (150-450) th/mm3 Cardiac Enzymes 06/25/18 Range/Units 07:18 Total Creatine Kinase 52 (26-192) U/L Troponin I Less than 0.02 L (0.02-0.05) ng/mL Urine 06/25/18 Range/Units 07:56 Urine Color Straw (Yellw/Straw) Urine Clarity Clear (Clear) Urine pH 6.0 (5.0-8.5) Ur Specific Gilmer 1.025 (1.002-1.035) Urine Protein Negative (Neg-Trace) mg/dL Urine Glucose (UA) Negative (Negative) mg/dL <Jez Gordon - 06/25/18 11:13> - Imaging Impressions Chest X-Ray 06/25/18 07:15 CONCLUSION: Perihilar infiltrate on the left. This is new compared to prior 2010. Underlying pneumonia is not excluded. Head CT 06/25/18 07:15 CONCLUSION: 1. No acute intracranial abnormality. Report was called by [Dr. Chilango Arguello to Dr. Thomas at 7:29 AM.] Head CTA 06/25/18 07:15 CONCLUSION: 1. No large or central vessel occlusion identified. CT cerebral perfusion is pending. Report was called by [ Dr. Ankush Arguello to Dr. Paredes at 7:44 AM] Neck CTA 06/25/18 07:15 CONCLUSION: 1. No hemodynamically significant carotid artery stenosis identified. 2. Diminutive right vertebral. The left vertebral is dominant blood supply to the basilar. CT CAD 06/25/18 07:16 CONCLUSION: Physiological brain perfusion parameters with RAPID analysis as above. The decision for consideration of therapy is multi factorial and multi disciplinary relying on subjective and objective clinical data. This data is not construed or intended to be the sole determinant of treatment eligibility. <Jez Gordon J - 06/25/18 11:13> Caprini VTE Risk Assessment Caprini VTE Risk Assessment: Moderate/High Risk (score >= 2) <Jez Gordon - 06/25/18 18:28> Caprini Risk Assessment Model: Point Value = 1 Point Value = 2 Point Value = 3 Point Value = 5 Age 41-60 Minor surgery BMI > 25 kg/m2 Swollen legs Varicose veins or History of unexplained or recurrent spontaneous Oral contraceptives or hormone replacement Sepsis (< 1 month) Serious lung disease, including pneumonia (< 1 month) Abnormal pulmonary function Acute myocardial infarction Congestive heart failure (< 1 month) History of inflammatory bowel disease Medical patient at bed rest Age 61-74 Arthroscopic surgery Major open surgery (> 45 min) Laparoscopic surgery (> 45 min) Malignancy Confined to bed (> 72 hours) Immobilizing plaster cast Central venous access Age >= 75 History of VTE Family history of VTE Factor V Leiden Prothrombin [id number] Lupus anticoagulant Anticardiolipin antibodies Elevated serum homocysteine Heparin-induced thrombocytopenia Other congenital or acquired thrombophilia Stroke (< 1 month) Elective arthroplasty Hip, pelvis, or leg fracture Acute spinal cord injury (< 1 month) <Chaparro Costello - 06/27/18 16:29> Point Value = 1 Point Value = 2 Point Value = 3 Point Value = 5 Age 41-60 Minor surgery BMI > 25 kg/m2 Swollen legs Varicose veins or History of unexplained or recurrent spontaneous Oral contraceptives or hormone replacement Sepsis (< 1 month) Serious lung disease, including pneumonia (< 1 month) Abnormal pulmonary function Acute myocardial infarction Congestive heart failure (< 1 month) History of inflammatory bowel disease Medical patient at bed rest Age 61-74 Arthroscopic surgery Major open surgery (> 45 min) Laparoscopic surgery (> 45 min) Malignancy Confined to bed (> 72 hours) Immobilizing plaster cast Central venous access Age >= 75 History of VTE Family history of VTE Factor V Leiden Prothrombin [id number] Lupus anticoagulant Anticardiolipin antibodies Elevated serum homocysteine Heparin-induced thrombocytopenia Other congenital or acquired thrombophilia Stroke (< 1 month) Elective arthroplasty Hip, pelvis, or leg fracture Acute spinal cord injury (< 1 month) <Jez Gordon - 06/25/18 11:13> Prophylaxis Regimen: Total Risk Factor Score Risk Level Prophylaxis Regimen 0-1 Low Early ambulation 2 Moderate Order ONE of the following: *Sequential Compression Device (SCD) *Heparin 5000 units SQ BID 3-4 Higher Order ONE of the following medications: *Heparin 5000 units SQ TID *Enoxaparin/Lovenox 40 mg SQ daily (WT < 150 kg, CrCl > 30 mL/min) *Enoxaparin/Lovenox 30 mg SQ daily (WT < 150 kg, CrCl > 10-29 mL/min) *Enoxaparin/Lovenox 30 mg SQ BID (WT < 150 kg, CrCl > 30 mL/min) AND/OR *Sequential Compression Device (SCD) 5 or more Highest Order ONE of the following medications: *Heparin 5000 units SQ TID (Preferred with Epidurals) *Enoxaparin/Lovenox 40 mg SQ daily (WT < 150 kg, CrCl > 30 mL/min) *Enoxaparin/Lovenox 30 mg SQ daily (WT < 150 kg, CrCl > 10-29 mL/min) *Enoxaparin/Lovenox 30 mg SQ BID (WT < 150 kg, CrCl > 30 mL/min) AND *Sequential Compression Device (SCD) <Chaparro Costello - 06/27/18 16:29> Total Risk Factor Score Risk Level Prophylaxis Regimen 0-1 Low Early ambulation 2 Moderate Order ONE of the following: *Sequential Compression Device (SCD) *Heparin 5000 units SQ BID 3-4 Higher Order ONE of the following medications: *Heparin 5000 units SQ TID *Enoxaparin/Lovenox 40 mg SQ daily (WT < 150 kg, CrCl > 30 mL/min) *Enoxaparin/Lovenox 30 mg SQ daily (WT < 150 kg, CrCl > 10-29 mL/min) *Enoxaparin/Lovenox 30 mg SQ BID (WT < 150 kg, CrCl > 30 mL/min) AND/OR *Sequential Compression Device (SCD) 5 or more Highest Order ONE of the following medications: *Heparin 5000 units SQ TID (Preferred with Epidurals) *Enoxaparin/Lovenox 40 mg SQ daily (WT < 150 kg, CrCl > 30 mL/min) *Enoxaparin/Lovenox 30 mg SQ daily (WT < 150 kg, CrCl > 10-29 mL/min) *Enoxaparin/Lovenox 30 mg SQ BID (WT < 150 kg, CrCl > 30 mL/min) AND *Sequential Compression Device (SCD) <Jez Gordon - 06/25/18 11:13> Assessment and Plan - Assessment (1) Acute cerebrovascular accident Code(s): I63.9 - Cerebral infarction, unspecified Status: Acute (2) Dysarthria Code(s): R47.1 - Dysarthria and anarthria Status: Acute <Chaparro Costello - 06/27/18 16:29> (1) Acute cerebrovascular accident Code(s): I63.9 - Cerebral infarction, unspecified Status: Acute (2) Dysarthria Code(s): R47.1 - Dysarthria and anarthria Status: Acute <Jez Gordon - 06/25/18 18:28> - Assessment and Plan She is a 42-year-old female who presents with significant stroke symptoms including dysarthria and left-sided weakness/numbness Acute CVA in the setting of von Willebrand disease: -Stroke alert was called and CT of the brain was performed which was negative for acute pathology -CTA of neck and head were negative for acute pathology -MR of the head was unremarkable -Dr. Thomas (ED physician) spoke with neurology and hematology and decision was made to not give TPA Head of the bed flat for 5 hours Every 2 neurochecks Speech therapy evaluation for dysarthria and swallow study ordered Continuous telemetry Consult to neurology, appreciate recommendations Consult to hematology due to von Willebrand's disease, appreciate recommendations Aspirin 325 daily and atorvastatin 40 mg daily Vasotec as needed for SBP greater than 220 or DBP greater than 120 Low-dose sliding scale insulin before meals at bedtime Type 2 diabetes: -States that she is controlled by diet -Blood glucose has been within normal limits thus far -We will continue to monitor Bipolar disorder: -States that she has been stable off of medication -We will continue to monitor her her psychiatric status Fluids: Normal saline at 100 cc/h Electrolytes: monitor and replete as needed Nutrition: N.p.o. until after swallow evaluation GI prophylaxis: not indicated VTE prophylaxis: Lovenox 40 sq daily Patient was seen and examined with Dr. Caban and condition was discussed with Dr. Costello <Jez Gordon - 06/25/18 18:35> - Attending Attestation THIS CASE WAS DISCUSSED WITH THE RESIDENT PHYSICIANS. I HAVE REVIEWED THE RECORD AND AGREE WITH THE ABOVE NOTE AND PLAN OF CARE WAS DISCUSSED. I HAVE AUTHORIZED THE ORDER FOR ADMISSION TO AN IN-PATIENT STATUS. Chaparro Costello MD <Chaparro Costello - 06/27/18 16:29>
[2018-06-25] MEDS ORDERED: Dextrose 50% in Water 50 ML Vial IV.PUSH PRN (12:50)
[2018-06-25] MEDS ORDERED: Enoxaparin Inj 40 MG/0.4 ML Syringe SQ SCH (13:00)
[2018-06-25] MEDS: Aspirin 325 MG Tablet PO SCH (14:38)
--- NOTE | 2018-06-25 16:10 | ECG ---
Date Performed: 06/25/2018 Time Performed: 07:56:02 PTAGE: 42 years EKG: Sinus rhythm BORDERLINE LEFT AXIS DEVIATION BORDERLINE ECG PREVIOUS TRACING 02/10/16 Since the previous tracing, no significant change noted DOCTOR: Sanford Castañeda Interpretating Date/Time 06/25/2018 16:07:21
--- NOTE | 2018-06-25 16:51 | MR ---
EXAM DATE: 06/25/2018 4:44 PM EST AGE/SEX: 42 years / Female INDICATIONS: CVA. Left sided weakness. CLINICAL DATA: This is the patient's initial encounter. Patient reports that signs and symptoms have been present for 1 day and indicates a pain score of 5/10. MEDICAL/SURGICAL HISTORY: None. section. Tubal ligation. Cholecystectomy. COMPARISON: [facility] – [place], [place] HEAD W/O CONTRAST, 06/25/2018. [facility] – [place], [place] CEREBRAL PERF W CONTRAST W 3D, 05/31. . TECHNIQUE: Multiplanar, multisequence examination of the brain was performed without contrast. FINDINGS: Cerebrum: The ventricles are normal for age. No evidence of midline shift, mass lesion, hemorrhage or acute infarction. No extraaxial fluid collections are seen. The pituitary gland and suprasellar cistern are normal in configuration. White Matter: No significant signal abnormalities are seen in the white matter. Posterior Fossa: The cerebellum and brainstem are intact. The 4th ventricle is midline. The cerebel lopontine angle is unremarkable. The cerebellar tonsils are normal in position. Diffusion Imaging: No focal areas of restricted diffusion are seen. No evidence of acute infarction . Extracranial: The visualized portions of the orbits and paranasal sinuses are unremarkable. CONCLUSION: 1. Unremarkable MRI of the brain Electronically signed by: Betro Lema MD 06/25/2018 4:49 PM EST
[2018-06-25] MEDS: Insulin NovoLOG Aspart Correctional Sugar Inj SQ SCH ×2 (17:06→21:57)
--- NOTE | 2018-06-25 19:16 | P.CONNEU ---
History of Present Illness Service: Neurology Primary Care Provider: UNKNOWN Chief Complaint: weakness History of Present Illness: 42-year-old female admitted for possible strokelike symptoms. Family is having some chest discomfort the past several days this morning and had dysarthric speech for weakness in her left side. She is a history of on Willebrand's disease in addition to bipolar disorder. CT brain carotids were negative for any acute lesion. On speaking to the ER physician he states he did notice some inconsistencies on her examination in regards to weakness in her speech pattern. At present she states she has been under a high level of stress. Works at 2 jobs. Denies any domestic issues denies any head or neck trauma. Review of Systems All other systems reviewed negative except as stated in HPI [facility] - History History Provided By: Patient, Significant Other - Medical History Medical History: Medical History (Last Reviewed 06/25/18 @ 14:37 by Ada Concepcion) Stroke Asthma Diabetes Von Willebrand disease - Tobacco History Second Hand Smoke Exposure: No Smoking Status: Never smoker - Alcohol History How Often Do You Have a Drink Containing Alcohol: Monthly or less - Substance Use History Substance History: No History of Abuse - Travel History Recent Travel in the [place] Within the Last 8 Weeks: No Recent Travel Out of the Country Within the Last 8 Weeks: No - Immunization History Tetanus Immunization: Unsure Hx Influenza Vaccine This Season: No Medications and Allergies Active Medications: Active Medications Acetaminophen (Tylenol) 650 mg PO Q4H PRN PRN Reason: Temp > 100.4 Last Admin: 06/25/18 12:55 Dose: 650 mg Aspirin (Aspirin) 325 mg PO DAILY [facility] Last Admin: 06/25/18 14:38 Dose: 325 mg Atorvastatin Calcium (Lipitor) 40 mg PO HS [facility] Dextrose (D50w Vial) 50 ml IV.PUSH UNSCH PRN PRN Reason: PER HYPOGLYCEMIA PROTOCOL Enalaprilat (Vasotec Inj) 1.25 mg IV.PUSH Q4H PRN PRN Reason: For SBP > 220 or DBP > 120 Enoxaparin Sodium (Lovenox Inj) 40 mg SQ Q24H [facility] Last Admin: 06/25/18 14:39 Dose: 40 mg Glucagon (Glucagon Inj) 1 mg OTHER UNSCH PRN PRN Reason: for Hypoglycemia Protocol Sodium Chloride (Ns Inj) 1,000 mls @ 100 mls/hr IV.CONT .Q10H [facility] Last Admin: 06/25/18 07:20 Dose: 70 mls/hr Sodium Chloride (Ns Inj) 1,000 mls @ 100 mls/hr IV.CONT .Q10H [facility] Last Admin: 06/25/18 14:38 Dose: 100 mls/hr Insulin Aspart (Novolog Insulin Correctional Sugar Inj) 0 unit SQ ACHS [facility]; Protocol Last Admin: 06/25/18 17:06 Dose: Not Given Ondansetron HCl (Zofran Inj) 4 mg IV.PUSH Q6H PRN PRN Reason: NAUSEA OR VOMITING Sodium Chloride (Ns Flush) 2 ml IV.FLUSH BID RAMILA Sodium Chloride (Ns Flush) 2 ml IV.FLUSH PRN PRN PRN Reason: FLUSH AFTER USING IV ACCESS Allergies Allergy/AdvReac Type Severity Reaction Status Date / Time erythromycin base Allergy Severe RASH Verified 06/25/18 07:09 lamotrigine Allergy Severe HIVES Verified 06/25/18 07:09 Exam Vital signs: Vital Signs 06/25/18 06:39 06/25/18 07:11 06/25/18 07:30 Temperature 98.1 F Pulse Rate 85 100 H 72 Respiratory Rate 18 27 H 18 Blood Pressure 121/55 L 132/92 H 118/74 Pulse Oximetry 99 100 99 06/25/18 07:37 06/25/18 09:54 06/25/18 12:00 Temperature 96.6 F L Pulse Rate 60 65 Respiratory Rate 19 20 Blood Pressure 106/61 117/59 L Pulse Oximetry 99 99 99 06/25/18 17:31 06/25/18 17:41 Temperature 98.9 F Pulse Rate 74 Respiratory Rate 20 Blood Pressure 94/60 L Pulse Oximetry 99 99 Intake & Output 06/25/18 06/25/18 06/26/18 06:59 18:59 06:59 Weight 62.142 kg 62.157 kg Other: # Voids 2 Date of Last Bowel Movement 06/25/18 Weight On Admission 62.157 kg Narrative: GENERAL: in NAD,, no acute distress SKIN: Warm and dry. HEAD: Atraumatic. Normocephalic. EYES: Pupils equal and round. No scleral icterus. ENT: No nasal bleeding or discharge. Mucous membranes pink and moist. NECK: Trachea midline. No JVD. CARDIOVASCULAR: Regular rate and rhythm. RESPIRATORY: No accessory muscle use. GASTROINTESTINAL: Abdomen soft, non-tender, nondistended. MUSCULOSKELETAL: Extremities without clubbing, cyanosis, or edema. NEUROLOGICAL: Awake and alert. Oriented x3, peculiar speech pattern at times she will start her at x11 disfluency other times she is quite articulate and can converse and make full sentences without difficulty. No difficulty with comprehension visual mack full pupils 4 3 mm bilaterally no gaze deviation exact movements full no facial asymmetry tongue midline, left-sided weakness proportional to patient effort time she is able to raise left arm other times she has not left leg withdraws to tactile but otherwise she states she cannot move it PSYCHIATRIC: Monotone speech reasonable eye contact - Constitutional no acute distress - Routine HEENT Exam Head: Present: normocephalic Eye: Present: EOMI Results - Labs CBC & Chem 7: 06/25/18 07:18 Labs: Laboratory Results - last 24 hr 06/25/18 06/25/18 06/25/18 07:16 07:18 07:18 WBC 4.9 RBC 4.18 Hgb 13.0 POC Hgb (Calc) 12.9 Hct 39.3 POC Hct 38.0 MCV 94.0 MCH 31.2 MCHC 33.2 RDW 15.1 Plt Count 178 MPV 10.0 Neut % (Auto) 62.4 Lymph % (Auto) 23.2 [place] % (Auto) 10.4 H Eos % (Auto) 2.9 Baso % (Auto) 1.1 Neut # (Auto) 3.1 Lymph # (Auto) 1.1 [place] # (Auto) 0.5 Eos # (Auto) 0.1 Baso # (Auto) 0.1 WBC Differential . Differential Comment Auto diff final PT INR APTT Fibrinogen POC Sodium 140 POC Potassium 4.0 POC Chloride 101 L POC BUN 15 POC Creatinine 0.6 POC Glucose 83 82 Total Creatine Kinase Troponin I Beta HCG, Quant Urine Color Urine Clarity Urine pH Ur Specific [place] Urine Protein Urine Glucose (UA) Urine Ketones Urine Occult Blood Urine Nitrate Urine Bilirubin Urine Urobilinogen Ur Leukocyte Esterase Urine RBC Ur Squamous Epith Cells Micro UA Comment Ur Microscopic Review Urine Culture Comments Urine Opiates Screen Ur Barbiturates Screen Ur Amphetamines Screen U Benzodiazepines Scrn Urine Cocaine Screen U Cannabinoids Screen Blood Type Blood Type Recheck Antibody Screen 06/25/18 06/25/18 06/25/18 07:18 07:18 07:37 WBC RBC Hgb POC Hgb (Calc) Hct POC Hct MCV MCH MCHC RDW Plt Count MPV Neut % (Auto) Lymph % (Auto) [place] % (Auto) Eos % (Auto) Baso % (Auto) Neut # (Auto) Lymph # (Auto) [place] # (Auto) Eos # (Auto) Baso # (Auto) WBC Differential Differential Comment PT 10.5 INR 1.0 APTT 27.1 Fibrinogen 251 POC Sodium POC Potassium POC Chloride POC BUN POC Creatinine POC Glucose Total Creatine Kinase 52 Troponin I Less than 0.02 L Beta HCG, Quant Less than 1 Urine Color Urine Clarity Urine pH Ur Specific [place] Urine Protein Urine Glucose (UA) Urine Ketones Urine Occult Blood Urine Nitrate Urine Bilirubin Urine Urobilinogen Ur Leukocyte Esterase Urine RBC Ur Squamous Epith Cells Micro UA Comment Ur Microscopic Review Urine Culture Comments Urine Opiates Screen Ur Barbiturates Screen Ur Amphetamines Screen U Benzodiazepines Scrn Urine Cocaine Screen U Cannabinoids Screen Blood Type O Positive Blood Type Recheck Not needed Antibody Screen Negative 06/25/18 06/25/18 06/25/18 07:56 07:56 12:58 WBC RBC Hgb POC Hgb (Calc) Hct POC Hct MCV MCH MCHC RDW Plt Count MPV Neut % (Auto) Lymph % (Auto) [place] % (Auto) Eos % (Auto) Baso % (Auto) Neut # (Auto) Lymph # (Auto) [place] # (Auto) Eos # (Auto) Baso # (Auto) WBC Differential Differential Comment PT INR APTT Fibrinogen POC Sodium POC Potassium POC Chloride POC BUN POC Creatinine POC Glucose 71 Total Creatine Kinase Troponin I Beta HCG, Quant Urine Color Straw Urine Clarity Clear Urine pH 6.0 Ur Specific [place] 1.025 Urine Protein Negative Urine Glucose (UA) Negative Urine Ketones Negative Urine Occult Blood Negative Urine Nitrate Negative Urine Bilirubin Negative Urine Urobilinogen Less than 2 Ur Leukocyte Esterase Negative Urine RBC Less than 1 Ur Squamous Epith Cells 7 Micro UA Comment Culture not ind Ur Microscopic Review Not Reportable Urine Culture Comments Culture not ind Urine Opiates Screen Neg Ur Barbiturates Screen Neg Ur Amphetamines Screen Neg U Benzodiazepines Scrn Neg Urine Cocaine Screen Neg U Cannabinoids Screen Neg Blood Type Blood Type Recheck Antibody Screen 06/25/18 17:05 WBC RBC Hgb POC Hgb (Calc) Hct POC Hct MCV MCH MCHC RDW Plt Count MPV Neut % (Auto) Lymph % (Auto) [place] % (Auto) Eos % (Auto) Baso % (Auto) Neut # (Auto) Lymph # (Auto) [place] # (Auto) Eos # (Auto) Baso # (Auto) WBC Differential Differential Comment PT INR APTT Fibrinogen POC Sodium POC Potassium POC Chloride POC BUN POC Creatinine POC Glucose 86 Total Creatine Kinase Troponin I Beta HCG, Quant Urine Color Urine Clarity Urine pH Ur Specific [place] Urine Protein Urine Glucose (UA) Urine Ketones Urine Occult Blood Urine Nitrate Urine Bilirubin Urine Urobilinogen Ur Leukocyte Esterase Urine RBC Ur Squamous Epith Cells Micro UA Comment Ur Microscopic Review Urine Culture Comments Urine Opiates Screen Ur Barbiturates Screen Ur Amphetamines Screen U Benzodiazepines Scrn Urine Cocaine Screen U Cannabinoids Screen Blood Type Blood Type Recheck Antibody Screen - Imaging Impressions Chest X-Ray 06/25/18 07:15 CONCLUSION: Perihilar infiltrate on the left. This is new compared to prior 2010. Underlying pneumonia is not excluded. Head CT 06/25/18 07:15 CONCLUSION: 1. No acute intracranial abnormality. Report was called by [Dr. Chilango Arguello to Dr. Thomas at 7:29 AM.] Head CTA 06/25/18 07:15 CONCLUSION: 1. No large or central vessel occlusion identified. CT cerebral perfusion is pending. Report was called by [ Dr. Ankush Arguello to Dr. Paredes at 7:44 AM] Neck CTA 06/25/18 07:15 CONCLUSION: 1. No hemodynamically significant carotid artery stenosis identified. 2. Diminutive right vertebral. The left vertebral is dominant blood supply to the basilar. CT CAD 06/25/18 07:16 CONCLUSION: Physiological brain perfusion parameters with RAPID analysis as above. The decision for consideration of therapy is multi factorial and multi disciplinary relying on subjective and objective clinical data. This data is not construed or intended to be the sole determinant of treatment eligibility. Head MRI 06/25/18 12:56 CONCLUSION: 1. 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 Weakness appears to be proportional level of effort. MRI brain scan negative Psychogenic weakness/ conversion disorder Recommendations Encouragement given to the patient that her symptoms should resolve Stress reduction if her symptoms do not improve she may require psychiatric evaluation
--- NOTE | 2018-06-25 19:49 | ECHRPT ---
Indication: CVA/TIA CONCLUSIONS Normal left ventricular size. Wall thickness is normal. The left ventricular systolic function is normal with an estimated ejection fraction in the range of 55-60%. Trace mitral valve regurgitation. There is trace tricuspid valve regurgitation. BP: / HR: Rhythm: MEASUREMENTS (Male / Female) Normal Values Technical Quality:Fair 2D ECHO LV Diastolic Diameter PLAX 4.8 cm 4.2 - 5.9 / 3.9 - 5.3 cm LV Systolic Diameter PLAX 3.1 cm IVS Diastolic Thickness 0.8 cm 0.6 - 1.0 / 0.6 - 0.9 cm LVPW Diastolic Thickness 0.9 cm 0.6 - 1.0 / 0.6 - 0.9 cm LV Relative Wall Thickness 0.4 RV Internal Dim ED PLAX 3.1 cm LVOT Diameter 2.0 cm Aortic Root Diameter 2.7 cm LA Systolic Diameter LX 3.2 cm 3.0 - 4.0 / 2.7 - 3.8 cm DOPPLER AV Peak Velocity 143.0 cm/s AV Peak Gradient 8.2 mmHg LVOT Peak Velocity 116.0 cm/s LVOT Peak Gradient 5.4 mmHg AV Area Cont Eq pk 2.5 cm Mitral E Point Velocity 89.3 cm/s Mitral A Point Velocity 63.7 cm/s Mitral E to A Ratio 1.4 LV E' Lateral Velocity 16.7 cm/s Mitral E to LV E' Lateral Ratio 5.3 LV E' Septal Velocity 10.3 cm/s Mitral E to LV E' Septal Ratio 8.7 TR Peak Velocity 231.0 cm/s TR Peak Gradient 21.3 mmHg Right Atrial Pressure 10.0 mmHg Pulmonary Artery Systolic Pressu 31.3 mmHg Right Ventricular Systolic Press 31.3 mmHg PV Peak Velocity 110.0 cm/s PV Peak Gradient 4.8 mmHg FINDINGS LEFT VENTRICLE Normal left ventricular size. Wall thickness is normal. The left ventricular systolic function is normal with an estimated ejection fraction in the range of 55-60%. No regional wall motion abnormalities are present. RIGHT VENTRICLE Normal right ventricular size and systolic function. LEFT ATRIUM The left atrial size is normal. RIGHT ATRIUM The right atrial size is normal. ATRIAL SEPTUM Normal atrial septal thickness without atrial level shunting by limited color doppler interrogation. AORTA The aortic root and proximal ascending aorta are normal in size on limited imaging. MITRAL VALVE Mild thickening of the mitral valve leaflets. Trace mitral valve regurgitation. AORTIC VALVE Trileaflet aortic valve. No aortic valve stenosis or regurgitation. TRICUSPID VALVE The tricuspid valve is not well visualized. There is trace tricuspid valve regurgitation. PULMONARY VALVE The pulmonary valve is not well visualized. VESSELS The inferior vena cava is normal in size. PERICARDIUM No pericardial effusion. Matthieu Guzman (Electronically Signed) Final Date:25 June 2018 19:48
--- NOTE | 2018-06-25 21:45 | MB ---
cc: Adina Stanley MD DATE: 06/25/2018 REFERRING PHYSICIAN: Jez Gordon MD CHIEF COMPLAINT: Dr. Gordon requested a consultation for Ms. De Los Santos regarding diagnosis of von Willebrand deficiency during an acute stroke. HISTORY OF PRESENT ILLNESS: Ms. De Los Santos is a 42-year-old woman with a history of von Willebrand deficiency. She reports being diagnosed elsewhere. She has had a prolonged bleeding time in addition to von Willebrand factor assay. She has never received von Willebrand factor. She had complications of bleeding only during . Once, she was given cryoprecipitate prior to her delivery. She appears to have tolerated other surgical procedures such as her laparoscopic cholecystectomy without any prophylaxis. She is not followed by inverter and clipper. Review of the electronic medical records show a von Willebrand factor profile performed during her showed von Willebrand factor activity antigen and factor VIII levels are in the normal range. She confirms that she was for both labs. The first lab, from 11/12/2016, shows a von Willebrand factor activity level of 76%, von Willebrand factor antigen level 141%, factor VIII activity level of 83%. She reports having her kids in October. A von Willebrand factor profile from 08/25/2008 shows von Willebrand factor antigen 106%, ristocetin cofactor 109% and factor VIII activity level of 98%. These laboratory findings argue against a diagnosis of von Willebrand deficiency. Review of her previous PTT were normal except for 08/19/2008 where her PTT is slightly prolonged at 34 seconds. She does not have any labs to demonstrate the level of von Willebrand factor evaluation confirming the type 2 disease. She presented to the emergency room on 06/25/2018 with dysarthria and left-sided weakness. Her symptoms started several days before with left-sided substernal, nonradiating, intermittent chest pain. In the morning, she woke and developed acute symptoms at 6:30 a.m. She had dysarthria, left arm weakness, left leg weakness and left-sided weakness. She was brought into the emergency room and TPA was contemplated in light of her acute neurologic symptoms. Because of her von Willebrand deficiency, anticoagulant therapy or thrombolytic therapy was held. Workup so far included an echo, which was showing a normal ejection fraction of 55%-60% with normal left ventricular size. CT of the head showed no acute intracranial abnormality. CTA of the head showed no large or central vessel occlusion. CTA of the neck shows no hemodynamically significant carotid artery stenosis identified. There is a diminutive right vertebral artery: The left vertebral is a dominant supplier of the basilar. Head MRI was unremarkable. She describes having a stroke before and there is no evidence of that in the current imaging study. The case was discussed with Dr. Gordon earlier, before the imaging study, particularly the MRI, was available. We have discussed continued medical management for acute CVA on clinical grounds. She has been placed on aspirin therapy and DVT prophylaxis. Ms. De Los Santos describes that her bleeding episodes occur only during . She had menorrhagia. She has bleeding. She has had for her delivery and one such coordinated through [facility], she was treated with cryoprecipitate. She does not appear to have a inverter and clipper helping her with her von Willebrand deficiency. She has not required any treatment. PAST MEDICAL HISTORY: Von Willebrand deficiency, claims to be type 2, previous history of stroke, asthma, diabetes. PAST SURGICAL HISTORY: , multiple and laparoscopic cholecystectomy. SOCIAL HISTORY: She denies any tobacco or illicit drug use. She drinks alcohol rarely. She is from her children's father. All her children are out of state. She is here with her significant other. FAMILY HISTORY: Significant for maternal aunt with a bleeding disorder. Mother does not have a diagnosis of von Willebrand deficiency, but had a hysterectomy early for menorrhagia. One daughter, age 14, is apparently diagnosed with von Willebrand deficiency. She is not sure what type. Her daughter is out of state. ASSESSMENT AND PLAN: Ms. De Los Santos is a 42-year-old woman with a prior history of diabetes type 2, previous stroke, bipolar disorder, who presents with dysarthria and left-sided weakness. She has a diagnosis of von Willebrand deficiency, type 2, which is not well described. I recommend repeating a von Willebrand factor profile in the morning. I recommend a peripheral draw. Unfortunately, the results of the von Willebrand factor profile will not be available in time for my clinical decision making. I suspect she has mild type 1 von Willebrand deficiency in light of the laboratory evaluation that was seen. She had normal von Willebrand factor in , which were just in the low normal range. Generally in , von Willebrand factor profile is expected to be higher than about 150%, given that these were the third trimester laboratory evaluations. Nevertheless, I have no evidence or laboratory support for her diagnosis of von Willebrand deficiency, type 2. Her history of her bleeding and workup are inconsistent with von Willebrand deficiency. The case was discussed with Dr. Paredes. The neurologic symptoms are not likely to be stroke in light of the negative workup so far. Workup continues. In the meantime, I concur with the aspirin, deep venous thrombosis prophylaxis and antiinflammatory medication with atorvastatin. We will monitor closely for any bleeding. Her bleeding has mainly manifested during her delivery and peripartum. She is advised of the laboratory results that are available in our electronic medical records. She has been given a copy of them. She is advised to get a copy of her previous workup. She will need follow up in hematology clinic in order to confirm and to better delineate further the type of von Willebrand deficiency and how best to treat in the future. Her questions were answered to her satisfaction. MD TITA Rivera/rubina , 08:59 PM , 09:17 PM
[2018-06-26] MEDS: Sod Chloride 0.9% Inj 1,000 ML IV.CONT SCH ×3 (00:35→10:38)
[2018-06-26 08:30] LABS: Baso % (Auto) 0.9 % (0.0-2.0); Eos # (Auto) 0.2 th/mm3 (0.0-0.4); Eos % (Auto) 3.9 % (0.0-4.0); Hematocrit 35.7 % (35.0-46.0); Hemoglobin 11.9 gm/dL (11.6-15.3); Lymph # (Auto) 1.1 th/mm3 (1.0-4.8); Lymph % (Auto) 26.4 % (9.0-44.0); Mean Corpuscular HGB Conc 33.2 % (32.0-36.0); Mean Corpuscular Hemoglobin 31.2 pg (27.0-34.0); Mean Corpuscular Volume 93.9 fL (80.0-100.0); Mean Platelet Volume 10.2 fL (7.0-11.0); Mono # (Auto) 0.4 th/mm3 (0.0-0.9); Mono % (Auto) 10.2 % (0.0-8.0); Neut # (Auto) 2.4 th/mm3 (1.8-7.7); Neut % (Auto) 58.6 % (16.0-70.0); Platelet Count 154 th/mm3 (150-450); Red Blood Count 3.81 mil/mm3 (4.00-5.30); Red Cell Distribution Width 14.9 % (11.6-17.2); White Blood Count 4.1 th/mm3 (4.0-11.0)
[2018-06-26 08:57] LABS: Anion Gap 5 meq/L (5-15); Blood Urea Nitrogen 10 mg/dL (7-18); Calcium 7.6 mg/dL (8.5-10.1); Chloride 112 meq/L (98-107); Glomerular Filtration Rate Greater Than 89 mL/min (>89); Glucose,Random 74 mg/dL (74-106); Potassium 4.1 meq/L (3.5-5.1); Sodium 142 meq/L (136-145)
[2018-06-26 08:58] LABS: Cholesterol 120 mg/dL (120-200); Triglycerides 50 mg/dL (42-150)
[2018-06-26 09:00] LABS: Chol/HDL Ratio 2.35 Ratio; LDL Cholesterol,Calculated 59 mg/dL (0-99)
[2018-06-26] MEDS: Insulin NovoLOG Aspart Correctional Sugar Inj SQ SCH (10:33)
[2018-06-26] MEDS: Aspirin 325 MG Tablet PO SCH (10:37)
--- NOTE | 2018-06-26 12:15 | P.PNFP ---
Subjective Interval history: Patient feels a little better this morning although she still cannot feel most of her left leg and her left arm. She has difficulty with dropping the first letter of certain words. The previous day, she could hardly pronounce the letter "S." She mentioned being an executive working for [employer] and stated clearly that she cannot lose her job due to her neurological difficulties. <Fatuma Vega U - 06/26/18 13:28> Results - Labs Result diagrams: 06/26/18 07:10 06/26/18 07:10 <Chaparro Costello R - 06/27/18 13:05> Abnormal lab results 06/26/18 06/26/18 06/26/18 Range/Units 07:10 07:10 08:17 RBC 3.81 L (4.00-5.30) mil/mm3 [place] % (Auto) 10.2 H (0.0-8.0) % Chloride 112 H (98-107) meq/L Creatinine 0.48 L (0.50-1.00) mg/dL POC Glucose 63 L (68-110) mg/dl Calcium 7.6 L (8.5-10.1) mg/dL Short CBC 06/26/18 Range/Units 07:10 WBC 4.1 (4.0-11.0) th/mm3 Hgb 11.9 (11.6-15.3) gm/dL Hct 35.7 (35.0-46.0) % Plt Count 154 (150-450) th/mm3 BMP 06/26/18 07:10 Sodium 142 Potassium 4.1 Chloride 112 H Carbon Dioxide 25.0 BUN 10 Creatinine 0.48 L Calcium 7.6 L <Fatuma Vega U - 06/26/18 12:15> - Imaging Impressions Head MRI 06/25/18 12:56 CONCLUSION: 1. Unremarkable MRI of the brain <Fatuma Vega U - 06/26/18 12:15> Physical Exam Vital signs: Vital Signs 06/26/18 16:00 06/26/18 17:30 Temperature 98.5 F Pulse Rate 72 Respiratory Rate 16 Blood Pressure 96/52 L Pulse Oximetry 98 99 <Chaparro Costello R - 06/27/18 13:05> Vital Signs 06/25/18 17:31 06/25/18 17:41 06/25/18 19:00 Temperature 98.9 F 96.5 F L Pulse Rate 74 76 Respiratory Rate 20 18 Blood Pressure 94/60 L 116/56 L Pulse Oximetry 99 99 06/26/18 00:00 06/26/18 04:00 06/26/18 08:00 Temperature 98.4 F 97.6 F 98.5 F Pulse Rate 68 68 64 Respiratory Rate 18 18 16 Blood Pressure 97/61 L 104/54 L 106/56 L Pulse Oximetry 97 99 98 06/26/18 12:00 Temperature 98.6 F Pulse Rate 76 Respiratory Rate 16 Blood Pressure 97/56 L Pulse Oximetry 98 Intake & Output 06/25/18 06/26/18 06/26/18 18:59 06:59 18:59 Intake Total 2550 / 2550 Balance 2550 / 2550 Weight 62.157 kg 62.5 kg Intake: IV 1949 NS Inj 1,000 ML @ 100 mls/hr IV 1949 .CONT .Q10H RAMILA Rx#:[id number] Oral 600 / 600 Other: # Voids 2 2 Date of Last Bowel Movement 06/25/18 06/25/18 Weight On Admission 62.157 kg <IsaiahangelicaFatuma U - 06/26/18 12:15> Narrative: GENERAL: in NAD, no acute distress SKIN: Warm and dry. HEAD: Atraumatic. Normocephalic. EYES: Pupils equal and round. No scleral icterus. ENT: No nasal bleeding or discharge. Mucous membranes pink and moist. NECK: Trachea midline. No JVD. CARDIOVASCULAR: Regular rate and rhythm. RESPIRATORY: No accessory muscle use. GASTROINTESTINAL: Abdomen soft, non-tender, nondistended. MUSCULOSKELETAL: Extremities without clubbing, cyanosis, or edema. NEUROLOGICAL: Awake and alert. Oriented x3, loss of pinprick sensation on the plantar surface of the left foot and at random spots on the dorsal surface of her right foot. Strength is 3/5 in the LLE and LUE. PSYCHIATRIC: Speech is reasonable but missing first letters of words, good eye contact <IsaiahangelicaFatuma U - 06/26/18 13:35> Assessment and Plan - Assessment (1) Acute cerebrovascular accident Code(s): I63.9 - Cerebral infarction, unspecified Status: Acute (2) Dysarthria Code(s): R47.1 - Dysarthria and anarthria Status: Acute <Chaparro Costello [facility] 06/27/18 13:05> (1) Acute cerebrovascular accident Code(s): I63.9 - Cerebral infarction, unspecified Status: Acute (2) Dysarthria Code(s): R47.1 - Dysarthria and anarthria Status: Acute <Fatuma Vega - 06/26/18 15:19> - Assessment and Plan She is a 42-year-old female who presented with stroke symptoms including dysarthria and left-sided weakness/numbness Acute CVA in the setting of von Willebrand disease: -Stroke alert was called and CT of the brain was performed which was negative for acute pathology -CTA of neck and head were negative for acute pathology -MR of the head was unremarkable, patient did not receive TPA Consult to neurology - 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 RPR pending Type 2 diabetes: -States that she is controlled by diet -Blood glucose has been within normal limits thus far -We will continue to monitor Bipolar disorder: -States that she has been stable off of medication and was cleared by psychiatry 8 months ago Fluids: Normal saline at 100 cc/h Electrolytes: monitor and replete as needed Nutrition: regular adult diet GI prophylaxis: not indicated VTE prophylaxis: Lovenox 40 sq daily Patient was seen and examined with Dr. Caban and Dr. Costello Possible discharge home with home health PT and a wheeled walker Recommend follow up with psychiatry <Fatuma Vega - 06/26/18 15:20> - Attending Attestation This patient was seen and evaluated with the resident physician. I agree with the plan of care as discussed with me and documented in the resident note. Chaparro Costello MD <Chaparro Costello 06/27/18 13:05>
[2018-06-26 12:28] LABS: Thyroid Stimulating Hormone 1.54 uIU/mL (0.358-3.740)
[2018-06-26 12:44] LABS: Hemoglobin A1c 4.7 % (4.3-6.0)
--- NOTE | 2018-06-26 15:02 | P.DCO ---
- Physical Therapy Order: Evaluate and treat, Improve ambulation, Strength and gait training - Home Health Nursing Order: Medical education, Signs/symptoms of disease process, Medication education-adverse effect, Nursing assessment with vital signs - Case Management Consult Case Management Consult-Home Health: Yes - Certification I have seen patient Lexi De Los Santos on 06/26/18. My clinical findings support the need for the requested home health care services because: Limited mobility due to disease progression, Deconditioned with increased weakness, Medication compliance is questionable, Need for psychosocial assistance, Impaired cognition/judgement I certify that my clinical findings support that this patient is homebound because: Impaired cognitive ability/safety, Unsteady gait/balance, Unsafe to leave home unassisted, Need for psychosocial assistance, Unable to use public transportation
--- NOTE | 2018-06-26 15:22 | P.PNONC ---
Subjective Interval history: Patient lying in bed, in no acute distress. She reports she walked with physical therapy with a walker. Still with left- sided weakness. Plan was to repeat VWF in the a.m., however the patient tells me she is being discharged today. If she is in fact discharged today, she can follow-up with hematology as an outpatient to proceed with this workup. Objective Vital Signs/Intake & Output: Vital Signs 06/25/18 17:31 06/25/18 17:41 06/25/18 19:00 Temperature 98.9 F 96.5 F L Pulse Rate 74 76 Respiratory Rate 20 18 Blood Pressure 94/60 L 116/56 L Pulse Oximetry 99 99 06/26/18 00:00 06/26/18 04:00 06/26/18 08:00 Temperature 98.4 F 97.6 F 98.5 F Pulse Rate 68 68 64 Respiratory Rate 18 18 16 Blood Pressure 97/61 L 104/54 L 106/56 L Pulse Oximetry 97 99 98 06/26/18 12:00 Temperature 98.6 F Pulse Rate 76 Respiratory Rate 16 Blood Pressure 97/56 L Pulse Oximetry 98 Intake & Output 06/25/18 06/26/18 06/26/18 18:59 06:59 18:59 Intake Total 2550 / 2550 Balance 2550 / 2550 Weight 62.157 kg 62.5 kg Intake: IV 1949 NS Inj 1,000 ML @ 100 mls/hr IV 1949 .CONT .Q10H RAMILA Rx#:[id number] Oral 600 / 600 Other: # Voids 2 2 Date of Last Bowel Movement 06/25/18 06/25/18 Weight On Admission 62.157 kg Result Diagrams: 06/26/18 07:10 06/26/18 07:10 Laboratory Results: Laboratory Results - last 24 hr 06/25/18 06/25/18 06/26/18 17:05 20:13 07:10 WBC 4.1 RBC 3.81 L Hgb 11.9 Hct 35.7 MCV 93.9 MCH 31.2 MCHC 33.2 RDW 14.9 Plt Count 154 MPV 10.2 Neut % (Auto) 58.6 Lymph % (Auto) 26.4 [place] % (Auto) 10.2 H Eos % (Auto) 3.9 Baso % (Auto) 0.9 Neut # (Auto) 2.4 Lymph # (Auto) 1.1 [place] # (Auto) 0.4 Eos # (Auto) 0.2 Baso # (Auto) 0.0 WBC Differential . Differential Comment Auto diff final Sodium Potassium Chloride Carbon Dioxide Anion Gap BUN Creatinine Estimated GFR POC Glucose 86 109 Random Glucose Calcium Triglycerides Cholesterol LDL Cholesterol, Calc HDL Cholesterol Cholesterol/HDL Ratio Vitamin B12 Folate TSH 06/26/18 06/26/18 06/26/18 07:10 08:17 11:08 WBC RBC Hgb Hct MCV MCH MCHC RDW Plt Count MPV Neut % (Auto) Lymph % (Auto) [place] % (Auto) Eos % (Auto) Baso % (Auto) Neut # (Auto) Lymph # (Auto) [place] # (Auto) Eos # (Auto) Baso # (Auto) WBC Differential Differential Comment Sodium 142 Potassium 4.1 Chloride 112 H Carbon Dioxide 25.0 Anion Gap 5 BUN 10 Creatinine 0.48 L Estimated GFR Greater than 89 POC Glucose 63 L Random Glucose 74 Calcium 7.6 L Triglycerides 50 Cholesterol 120 LDL Cholesterol, Calc 59 HDL Cholesterol 51.0 Cholesterol/HDL Ratio 2.35 Vitamin B12 Folate Greater than 20.0 H TSH 06/26/18 06/26/18 11:08 12:07 WBC RBC Hgb Hct MCV MCH MCHC RDW Plt Count MPV Neut % (Auto) Lymph % (Auto) [place] % (Auto) Eos % (Auto) Baso % (Auto) Neut # (Auto) Lymph # (Auto) [place] # (Auto) Eos # (Auto) Baso # (Auto) WBC Differential Differential Comment Sodium Potassium Chloride Carbon Dioxide Anion Gap BUN Creatinine Estimated GFR POC Glucose 81 Random Glucose Calcium Triglycerides Cholesterol LDL Cholesterol, Calc HDL Cholesterol Cholesterol/HDL Ratio Vitamin B12 352 Folate TSH 1.540 Imaging Studies: Impressions Head MRI 06/25/18 12:56 CONCLUSION: 1. Unremarkable MRI of the brain Medications: Active Medications Generic Name Dose Route Start Last Admin Trade Name Freq PRN Reason Stop Dose Admin Acetaminophen 650 mg 06/25/18 09:26 06/25/18 12:55 Tylenol PO 650 mg Q4H PRN Administration Temp > 100.4 Aspirin 325 mg 06/25/18 13:00 06/26/18 10:37 Aspirin PO 325 mg DAILY RAMILA Administration Atorvastatin Calcium 40 mg 06/25/18 21:30 06/25/18 21:55 Lipitor PO 40 mg HS RAMILA Administration Enoxaparin Sodium 40 mg 06/25/18 13:00 06/25/18 14:39 Lovenox Inj SQ 40 mg Q24H RAMILA Administration Sodium Chloride 1,000 mls @ 100 mls/hr 06/25/18 07:15 06/26/18 05:42 Ns Inj IV.CONT 70 mls/hr .Q10H RAMILA Administration Sodium Chloride 1,000 mls @ 100 mls/hr 06/25/18 13:00 06/26/18 10:38 Ns Inj IV.CONT 100 mls/hr .Q10H RAMILA Administration Insulin Aspart 0 unit 06/25/18 17:00 06/26/18 10:33 Novolog Insulin Correctional Sugar Inj SQ Not Given ACHS RAMILA Protocol Sodium Chloride 2 ml 06/25/18 21:00 06/26/18 10:37 Ns Flush IV.FLUSH 2 ml BID RAMILA Administration Objective Remarks: GENERAL: Well-nourished, well-developed young female patient, in no acute distress. SKIN: Warm and dry. HEAD: Normocephalic. EYES: No scleral icterus. No injection or drainage. NECK: Supple, trachea midline. CARDIOVASCULAR: Regular rate and rhythm without murmurs. RESPIRATORY: Breath sounds equal bilaterally. No accessory muscle use. GASTROINTESTINAL: Abdomen soft, non-tender, nondistended. EXTREMITIES: No cyanosis, or edema. MUSCULOSKELETAL: Adequate muscle tone. NEUROLOGICAL: + Dysarthria. +Left-sided weakness. awake, alert, and oriented x3. PSYCHIATRIC: Appropriate mood and affect; insight and judgment normal. Assessment/Plan - Plan Mrs. De Los Santos is a pleasant 42-year-old female patient currently hospitalized with neurologic symptoms. Hematology was consulted regarding diagnosis of on Willebrand deficiency during an acute stroke. Recommendations: 1. Recommendations to repeat upon Willebrand factor profile in the a.m. However, the patient tells me she is being discharged home today. She should follow-up with hematology as an outpatient to further this workup. Her information was sent to new patient referrals. 2. Dysarthria and left-sided weakness, management per neurology. 3. Recommend continuing aspirin and atorvastatin for DVT thrombosis prophylaxis and anti-inflammatory properties.
== END 2018-06-26 18:00 | disposition home health service (06) ==
LOC: NEPE 06:25 → NEDA 08:24 → H7ONC 11:43
PROVIDERS: ADMIT Family Medicine; ATTEND Family Medicine